=== PATIENT | male | born 1985 | race Caucasian/White ===

== ENCOUNTER 2021-01-11 08:09 | Outpatient (REF) | payer BC, SELFPAY ==
[2021-01-11 11:24] LABS: MANUAL DIFF FLAG NO
[2021-01-11 11:25] LABS: Basophils Percent Auto 0.6 % (0-2); Eosinophils Absolute Auto 0.2 X10*3/uL (0.0-0.4); Eosinophils Percent Auto 2.6 % (0-4); Hematocrit 50.6 % (42-52); Hemoglobin 16.8 g/dl (14.0-18.0); Imm Gran Abs Auto 0.02 X10*3/uL (0.00-0.03); Imm Gran Pct Auto 0.3 % (0.0-0.4); Lymphocytes Absolute Auto 1.1 X10*3/uL (1.2-4.9); Lymphocytes Percent Auto 16.6 % (20-40); Mean Corpuscular HGB Conc 33.2 g/dl (31.0-36.0); Mean Corpuscular Hemoglobin 30.3 pg (27.0-33.0); Mean Corpuscular Volume 91.2 fL (80-98); Monocytes Absolute Auto 0.8 X10*3/uL (0.1-1.2); Monocytes Percent Auto 11.2 % (2-11); Neutrophils Absolute Auto 4.7 X10*3/uL (2.0-8.3); Neutrophils Percent Auto 68.7 % (45-73); Platelet Count 316 X10*3/uL (160-400); Red Blood Count 5.55 X10*6/uL (4.60-5.80); Red Cell Distribution Width 12.6 % (11.0-16.0); White Blood Count 6.9 X10*3/uL (4.8-10.8)
[2021-01-11 11:39] LABS: Estimated Average Glucose 91 mg/dL; Hemoglobin A1c % 4.8 %
[2021-01-11 11:54] LABS: C Reactive Protein 0.23 mg/dL (< or = 0.50)
[2021-01-11 12:01] LABS: Erythrocyte Sedimentation Rate 1 MM/HR (0-15)
[2021-01-11 12:18] LABS: Thyroid Stimulating Hormone 0.79 uIU/mL (0.32-4.0); Vitamin D 25-OH Total 31.4 ng/mL (>30)
[2021-01-11 12:41] LABS: Folate 16.8 ng/mL (> or = 4.0); Vitamin B12 516 pg/mL (200-900)
[2021-01-12 21:16] LABS: Lyme Abs Screen <0.90 index
[2021-01-18 14:57] LABS: Testosterone, Free 71.2 pg/mL (35.0-155.0); Testosterone, Total 322 ng/dL (250-1100)
== END 2021-01-11 08:10 | disposition home or self-care (01) ==
LOC: HO.MANLDS 08:09
PROVIDERS: PCP Physician Assistant; Visit Provider Physician Assistant
DX: F41.1 Generalized anxiety disorder (principal); R53.83 Other fatigue
CPT/HCPCS: 36415; 82306; 82533; 82607; 82746; 83036; 84402; 84403; 84439; 84443; 85025; 85652; 86140; 86617; 86618

== ENCOUNTER 2022-12-05 11:46 | Outpatient (REF) | payer MEDICAID, SELFPAY ==
[2022-12-05 15:10] LABS: Free T4 (Free Thyroxine) 1.01 ng/dL (0.71-1.85); Thyroid Stimulating Hormone 0.86 uIU/mL (0.32-4.0)
[2022-12-05 15:22] LABS: Folate 12.5 ng/mL (> or = 4.0); Vitamin B12 614 pg/mL (200-900)
[2022-12-11 10:48] LABS: Testosterone, Total 355 ng/dL (250-1100)
== END 2022-12-05 11:47 | disposition home or self-care (01) ==
LOC: HO.MANLDS 11:46
PROVIDERS: Visit Provider Physician Assistant
DX: R53.83 Other fatigue (principal)
CPT/HCPCS: 36415; 82607; 82746; 84403; 84439; 84443